=== PATIENT | male | born 1945 | race Two or more races ===

== ENCOUNTER 2025-02-06 19:42 | Emergency (ER) | payer OTHER ==
[~2025-02-06] VITALS: Ht 177.8 cm; Wt 104.3 kg
[2025-02-06 20:00] VITALS: PULSE 76; RESP 21; O2SAT 94
[2025-02-06 20:10] VITALS: TEMP 96.8
--- NOTE | 2025-02-06 20:24 | ED.PDOC ---
History of Present Illness HPI Comments 79 year old male presents to the ED with a chief complaint of feeding tube malfunction onset today (02/06/25). Per EMS, patient was discharged from [facility] today, had feeding tube placed prior to discharge, was sent to hospice. Nurse states feeding tube was clogged, was advised to call 911. 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 Patient is currently experiencing shortness of breath. PMHx liver cancer, DM. No other symptoms or modifying factors present at this time. Chief Complaint: Tube Replacement Time Seen by MD: 20:15 Reviewed Notes: Medications, Allergies Allergies: Coded Allergies: Ciprofloxacin (Verified Allergy, Unknown, 02/06/25) Penicillins (Verified Allergy, Unknown, 02/06/25) Sulfa Antibiotics (Verified Allergy, Unknown, 02/06/25) Information Source: Patient, Relative (Child), Emergency Med Personnel, Spouse Mode of Arrival: EMS Severity: Moderate Timing: Hours Duration: Since onset Prehospital treatment: None Past Medical History PAST MEDICAL HISTORY: Cancer (LIVER), DM Surgical History: Denies all surgeries Family History Family History: Reviewed,noncontributory to illness, No family hx of Cancer, No family hx of DM, No family hx of Heart shanon, No family hx of HTN, No family hx ofKidney shanon, No family hx of Liver shanon, No family hx of Lung shanon, No family hx of Stroke Social History Smoker: Non-Smoker Alcohol: Denies ETOH Use Drugs: Denies Drug Use Lives In: Other (hospice) Constitutional: denies: chills, diaphoresis, fatigue, fever, malaise, sweats, weakness, others EENTM: denies: blurred vision, double vision, ear bleeding, ear discharge, ear drainage, ear pain, ear ringing, eye pain, eye redness, hearing loss, mouth pain, mouth swelling, nasal discharge, nose bleeding, nose congestion, nose pain, photophobia, tearing, throat pain, throat swelling, voice changes, others Respiratory: reports: shortness of breath; denies: cough, hemoptysis, orthopnea, SOB at rest, SOB with excertion, stridor, wheezing, others Cardiovascular: denies: chest pain, dizzy spells, diaphoresis, Dyspnea on exertion, edema, irregular heart beat, left arm pain, lightheadedness, palpitations, PND, syncope, others Gastrointestinal: denies: abdomen distended, abdominal pain, blood streaked bowels, constipated, diarrhea, dysphagia, difficulty swallowing, hematemesis, melena, nausea, poor appetite, poor fluid intake, rectal bleeding, rectal pain, vomiting, others Genitourinary: denies: burning, dysuria, flank pain, frequency, hematuria, incontinence, penile discharge, penile sore, pain, testicle pain, testicle swelling, urgency, others Neurological: denies: dizziness, fainting, headache, left sided numbness, left sided weakness, numbness, paresthesia, pre-existing deficit, right sided numbness, right sided weakness, seizure, speech problems, tingling, tremors, weakness, others Musculoskeletal: denies: back pain, gout, joint pain, joint swelling, muscle pain, muscle stiffness, neck pain, others Integumetry: denies: bruises, change in color, change in hair/nails, dryness, laceration, lesions, lumps, rash, wounds, others Allergic/Immunocompromised: denies: Difficulty Healing, Frequent Infections, Hives, Itching, others Hematologic/Lymphatic: denies: anemia, blood clots, easy bleeding, easy bruising, swollen glands, others Endocrine: denies: excessive hunger, excessive sweating, excessive thirst, excessive urination, flushing, intolerance to cold, intolerance to heat, unexplained weight gain, unexplained weight loss, others Psychiatric: denies: anxiety, bipolar disorder, depression, hopeless, panic disorder, schizophrenia, sleepless, suicidal, others All Other Systems: Reviewed and Negative Physical Exam General Appearance: No Apparent Distress, Normal HEENT: Normal ENT Inspection, Pharynx Normal, TMs Normal Neck: Full Range of Motion, Non-Tender, Normal, Normal Inspection Respiratory: Chest Non-Tender, Lungs Clear, Rhonchi (LT lower lobe) Cardiovascular: No Edema, No JVD, No Murmur, No Gallop, Normal Peripheral Pulses, Regular Rate/Rhythm Breast Exam: Deferred Gastrointestinal: No Organomegaly, Non Tender, No Pulsatile Mass, Normal Bowel Sounds, Soft Genitalia: Deferred Pelvic: Deferred Rectal: Deferred Extremities: No calf tenderness, Normal capillary refill, Normal inspection, Normal range of motion, Non-tender, No pedal edema Musculoskeletal : Apperance: Normal Neurologic: Alert, clinical application consultant II-XII nml as Tested, No Motor Deficits, Normal Affect, Normal Mood, No Sensory Deficits Cerebellar Function: Normal Reflexes: Normal Skin: Dry, Normal Color, Warm Lymphatic: No Adenopathy Was a procedure done? Was a procedure done?: No Differential Dx Considerations may include: Differential diagnosis includes but is not limited to: asthma, pneumonia, congestive heart failure, pleural effusion, empyema, pulmonary embolus, and others X-Ray, Labs, Meds, VS Vital Signs Date Time Temp Pulse Resp B/P (MAP) Pulse Ox O2 Delivery O2 Flow Rate FiO2 02/07/25 01:00 68 16 98/55 (69) 94 02/06/25 23:00 70 17 97/57 (70) 96 02/06/25 22:00 74 14 97/54 (68) 94 02/06/25 20:10 96.8 76 21 103/51 (68) 94 96.8 02/06/25 20:00 76 21 94 Room Air* 0 21 02/06/25 19:47 98.1 80 18 89/35 (53) 99 98.1 Lab Test 02/06/25 20:29 Range/Units White Blood Count 7.5 4.4-10.8 10^3/uL Red Blood Count 3.77 L 4.5-5.90 10^6/uL Hemoglobin 13.0 L 13.5-17.5 g/dL Hematocrit 37.7 L 41.0-53.0 % Mean Corpuscular Volume 99.9 80.0-100.0 fL Mean Corpuscular Hemoglobin 34.4 H 28.0-32.0 pg Mean Corpuscular Hemoglobin Concent 34.4 32.0-36.0 g/dL Red Cell Distribution Width 19.9 H 11.8-14.3 % Platelet Count 76 L 140-450 10^3/uL Mean Platelet Volume 7.8 6.9-10.8 fL Neutrophils (%) (Auto) 83.8 H 37.0-80.0 % Lymphocytes (%) (Auto) 5.0 L 10.0-50.0 % Monocytes (%) (Auto) 9.6 0.0-12.0 % Eosinophils (%) (Auto) 1.2 0.0-7.0 % Basophils (%) (Auto) 0.4 0.0-2.0 % Neutrophils # (Auto) 6.3 1.6-8.6 10 ^3/uL Lymphocytes # (Auto) 0.4 0.4-5.4 10 ^3/uL Monocytes # (Auto) 0.7 0-1.3 10 ^3/uL Eosinophils # (Auto) 0.1 0-0.8 10 ^3/uL Basophils # (Auto) 0 0-0.2 10 ^3/uL Nucleated Red Blood Cells 0.1 % Platelet Estimate Decreased Anisocytosis (manual) Slight Tear Drop Cells Few Sodium Level 131 L 136-145 mmol/L Potassium Level 5.3 H 3.5-5.1 mmol/L Chloride Level 105 98-107 mmol/L Carbon Dioxide Level 18 L 20-31 mmol/L Anion Gap 8 5-15 Blood Urea Nitrogen 39 H 9-23 mg/dL Creatinine 0.75 0.700-1.30 mg/dL Glomerular Filtration Rate Calc 91 >90 mL/min BUN/Creatinine Ratio 52.0 H 10.0-20.0 Serum Glucose 96 74-106 mg/dL Lactic Acid Level 2.0 0.4-2.0 mmol/L Calcium Level 8.4 L 8.7-10.4 mg/dL Total Bilirubin 6.0 H 0.2-1.0 mg/dL Aspartate Amino Transferase (AST) 68 H 13-40 U/L Alanine Aminotransferase (ALT) 36 7-40 U/L Alkaline Phosphatase 374 H 46-116 U/L Troponin I High Sensitivity 3 L </=54 ng/L B-Type Natriuretic Peptide 138.19 0-100 pg/mL Total Protein 5.9 5.7-8.2 g/dL Albumin 2.5 L 3.2-4.8 g/dL Current Medications Medications (Trade) Dose Ordered Sig/Elias Route Start Time Stop Time Status Last Admin Sodium Chloride 1,000 ml @ 1,000 mls/hr Q1H ONCE IV 02/06/25 20:30 02/06/25 21:29 DC 02/06/25 20:39 Ceftriaxone Sodium 50 ml @ 100 mls/hr ONCE ONCE IV 02/06/25 21:00 02/06/25 21:29 DC 02/06/25 21:28 Azithromycin 250 ml @ 125 mls/hr ONCE ONCE IV 02/06/25 21:00 02/06/25 22:59 DC 02/06/25 22:07 [facility] [id number] [place] [address] Ph: [phone] DIAGNOSTIC IMAGING Diagnostic Imaging Report : [id number] Signed PATIENT: SHADE MORRISSEY ACCT: [id number] UNIT: [id number] : 1945 LOC: ER ROOM / BED: / AGE / SEX: 79 / M ADM STATUS: REG ER SERVICE 12 ORDERING PHYSICIAN: MICHELLE GRIFFIN MD PROCEDURE(s): CXRP - CHEST PORTABLE REASON: SOB ORDER NUMBER(s): [id number], ACCESSION NUMBER(s): [id number] CHEST RADIOGRAPH Indication: SOB Technique: Single frontal view of the chest was obtained Comparison: None FINDINGS: Lines and Tubes: None Lungs: No focal consolidation. Pleura: No effusion. No pneumothorax. Cardiomediastinal contours: Unremarkable Bones: No acute osseous abnormality. IMPRESSION: 1. No acute cardiopulmonary disease. ATED BY: SONAM GILLESPIE Jr., DO DICTATED DATE/TIME: 02/06/252051 SIGNED BY: SONAM GILLESPIE Jr., SIGNED DATE/TIME: 02/06/252051 CC: Time of 1ST Reevaluation: 20:45 Reevaluation 1ST: Unchanged Patient Education/Counseling: Diagnosis, Treatment, Prognosis Family Education/Counseling: Diagnosis, Treatment, Prognosis Additional Information The following tests were ordered, and results were reviewed by me: TROP -x3, CBC, CMP, BLOOD CULTURE, XY CHEST, EKG, LA W/ REFLEX, BNP Additional Information was gathered from interviewing the following independent historians: EMS, , daughter I reviewed and agreed with the following test results read by other providers: XY CHEST I discussed treatment and results with medical personnel and: patient, , daughter Comprehensive systems review obtained and negative except for what is stated in the HPI. 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 Electronically submitted by Arianne Boyce ([email or web address]). I personally scribed for MICHELLE GRIFFIN MD ([email or web address]) on 02/06/25 at 20:26. Electronically submitted by Arianne Boyce ([email or web address]). I personally scribed for MICHELLE GRIFFIN MD ([email or web address]) on 02/06/25 at 22:02. Electronically submitted by Arianne Boyce ([email or web address]). MICHELLE GRIFFIN MD February 06, 2025 20:24
[2025-02-06] MEDS: SODIUM CHLORIDE 0.9% 1,000 ML IV ONE (20:39)
--- NOTE | 2025-02-06 20:54 | DVH ---
CHEST RADIOGRAPH Indication: SOB Technique: Single frontal view of the chest was obtained Comparison: None FINDINGS: Lines and Tubes: None Lungs: No focal consolidation. Pleura: No effusion. No pneumothorax. Cardiomediastinal contours: Unremarkable Bones: No acute osseous abnormality. IMPRESSION: 1. No acute cardiopulmonary disease.
[2025-02-06 20:58] LABS: Alanine Aminotransferase 36 U/L (7-40); Anion Gap 8 (5-15); Chloride 105 mmol/L (98-107); Glucose 96 mg/dL (74-106); Total Protein 5.9 g/dL (5.7-8.2)
[2025-02-06 21:17] LABS: Albumin 2.5 g/dL (3.2-4.8); Alkaline Phosphatase 374 U/L (46-116); Aspartate Aminotransferase 68 U/L (13-40); Blood Urea Nitrogen 39 mg/dL (9-23); Calcium 8.4 mg/dL (8.7-10.4); Carbon Dioxide 18 mmol/L (20-31); Potassium 5.3 mmol/L (3.5-5.1); Sodium 131 mmol/L (136-145)
[2025-02-06 21:18] LABS: Basophils # (auto) 0 10 ^3/uL (0-0.2); Eosinophils # (auto) 0.1 10 ^3/uL (0-0.8); Lymphocytes # (auto) 0.4 10 ^3/uL (0.4-5.4); Monocytes # (auto) 0.7 10 ^3/uL (0-1.3); Nucleated Red Blood Cells % 0.1 %; Red Cell Distribution Width 19.9 % (11.8-14.3)
[2025-02-06 21:19] LABS: Basophils % (auto) 0.4 % (0.0-2.0); Eosinophils % (auto) 1.2 % (0.0-7.0); Hematocrit 37.7 % (41.0-53.0); Mean Corpuscular Hemoglobin 34.4 pg (28.0-32.0); Mean Corpuscular Hgb Conc. 34.4 g/dL (32.0-36.0); Mean Corpuscular Volume 99.9 fL (80.0-100.0); Monocytes % (auto) 9.6 % (0.0-12.0); Neutrophils # (auto) 6.3 10 ^3/uL (1.6-8.6); Neutrophils % (auto) 83.8 % (37.0-80.0); Platelet Count (auto) 76 10^3/uL (140-450); Red Blood Cells 3.77 10^6/uL (4.5-5.90); White Blood Cell 7.5 10^3/uL (4.4-10.8)
[2025-02-06] MEDS: cefTRIAXone 1GM/50ML D5W 50 ML IV ONE (21:28)
[2025-02-06 21:49] LABS: Anisocytosis Slight; Platelet Estimate Decreased; Tear Drop Cells FEW
[2025-02-06] MEDS: AZITHROMYCIN 500MG/ 250ML 250 ML IV ONE (22:07)
[2025-02-07 01:00] VITALS: BP 98/55; PULSE 68; RESP 16; O2SAT 94
== END 2025-02-07 01:22 | disposition hospice, home (50) ==
LOC: ER 19:42 → EDBD 19:42 → ER 02-07 01:22
DX: C78.7 Secondary malignant neoplasm of liver and intrahepatic bile duct (principal); K94.23 Gastrostomy malfunction; E11.9 Type 2 diabetes mellitus without complications; Z51.5 Encounter for palliative care; Z88.2 Allergy status to sulfonamides; Z88.0 Allergy status to penicillin; Z88.1 Allergy status to other antibiotic agents; Z79.899 Other long term (current) drug therapy
CPT/HCPCS: 36415; 71045; 80053; 83605; 83880; 84484; 85025; 87040; 96361; 96365; 96366; 96367; 99285; J0456; J0696; J7030